=== PATIENT | female | born 1995 | race Caucasian/White ===

== ENCOUNTER → 2016-03-28 | Outpatient (REF) ==
[~2016-03-28] MED LIST: ANXIETY MED; PROZAC 20MG20 MG PO
== END ==
LOC: WSOH 10:26
DX: Z02.89 Encounter for other administrative examinations (principal)

== ENCOUNTER → 2016-04-25 | Outpatient (REF) | LOC: WSOH 10:52 | DX: Z00.00 Encounter for general adult medical examination without abnormal findings (principal) ==

== ENCOUNTER 2016-06-15 11:52 | Emergency (ER) | payer OTHER ==
[~2016-06-15] VITALS: Ht 172.7 cm; Wt 70.5 kg
[2016-06-15 11:57] VITALS: TEMP 99.4
[2016-06-15] MEDS ORDERED: ANXIETY MED (12:01)
[2016-06-15] MEDS ORDERED: PROZAC 20MG20 MG PO (12:17)
[2016-06-15 14:31] VITALS: BP 103/58; PULSE 66
== END 2016-06-15 14:32 | disposition home or self-care (01) ==
LOC: COL.ER 11:52
DX: S16.1XXA Strain of muscle, fascia and tendon at neck level, initial encounter (principal); R51 Headache; F41.9 Anxiety disorder, unspecified; V43.62XA Car passenger injured in collision with other type car in traffic accident, initial encounter; Y92.410 Unspecified street and highway as the place of occurrence of the external cause
CPT/HCPCS: J2360